=== PATIENT | female | born 2000 | race African-American/Black ===

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

== ENCOUNTER 2023-03-01 18:28 | Emergency (ER) | payer MEDICAID, OTHER ==
[~2023-03-01] VITALS: Ht 160 cm; Wt 68.0 kg
[2023-03-01 18:33] VITALS: BP 137/82; O2SAT 100
[2023-03-01] MEDS ORDERED: DIPHENHYDRAMINE 50MG/ML VIAL IV ONE (23:30)
[2023-03-01] MEDS ORDERED: PROCHLORPERAZINE 10MG/2ML VIAL IV PRN (23:30)
[2023-03-02 00:22] VITALS: PULSE 84; RESP 18; TEMP 98.1
== END 2023-03-02 00:25 | disposition home or self-care (01) ==
LOC: ER 18:28
DX: R51.9 Headache, unspecified (principal); Z88.0 Allergy status to penicillin
CPT/HCPCS: 99283; 96374; 81025; J1200